=== PATIENT | female | born 1925 | race African-American/Black ===

== ENCOUNTER → 2016-03-16 | Outpatient (CLI) | payer MEDICARE, OTHER ==
[~2016-03-16] MED LIST: ACETAMINOPHEN325 M1 ORAL; ACETAMINOPHEN500 M5 PO; ARICEPT10 MG ORAL; ATIVAN1 MG ORAL; ATORVASTATIN CA20 MG PO; BABY ASPIRIN81 MG PO; BISACODYL5 MG ORAL; CIPRO250 MG ORAL; COLACE100 MG PO; CORTISPORIN EAR10 M1 RIGHT EAR; DEPAKOTE ER250 MG PO; FERROUS SULFAT325 M1 PO; FLUTICASONE PRO16 G1 NASAL; FUROSEMIDE20 M1; GERI-TUSSI100 MG/5 M PO; GLUCOPHAGE1000 MG PO; ILEVRO1.7 ML OPHTHALM; KEFLEX500 MG ORAL; LIPITOR10 MG ORAL; LORAZEPAM1 MG; LUMIGAN2.5 ML BOTH EYES; MELATONIN 3 MG1 EAC1 PO; MIRTAZAPINE15 MG ORAL; MULTIVITAMINS1 EA13 ORAL; NAMENDA10 MG ORAL; NAMENDA10 MG/5 ML PO; NAPROSYN500 MG PO; NORVASC10 MG PO; NORVASC5 MG ORAL; PEPCID20 MG ORAL; PLAVIX75 MG ORAL; PROTONIX20 MG ORAL; PROTONIX40 MG PO; TENORMIN25 MG PO; TRAMADOL HCL50 MG ORAL
--- NOTE | 2016-03-16 16:17 | Diagnostic Imaging Report ---
Indications: Multiple left breast masses incidentally discovered on abdominopelvic CT scan performed 02/07/2016 evaluation of abdominal pain. Patient physically unable to undergo diagnostic mammography. Technique: Real-time grayscale and color Doppler imaging of left breast Findings: Comparison: Abdominopelvic CT scan 02/07/16 2.7 x 2.1 x 2.3 cm mass in 12:00 position. 1.5 x 1.5 x 1.6 cm mass in 10:00 position with adjacent 4 mm nodule of similar appearance. 3.2 x 2.2 x 3.8 cm mass in 2:00 to 3:00 position with adjacent 1 cm nodule of similar appearance. All are palpable, solid, heterogeneously hypoechoic, multilobulated with micro-lobulations, some intrinsic vascularity. 12:00 and 2:00 to 3:00 lesions contain focal calcification. 2:00 to 3:00 lesion demonstrates heterogeneous posterior shadowing. IMPRESSION: Multiple left breast masses as described highly suspicious for multifocal primary breast malignancy. After extensive discussion of findings and management options with patient's daughter, present at time of exam, and she opted to delay ultrasound-guided needle biopsy in order to discuss case further with family and the patient's physicians. BI-RADS category 4C Recommendations: Deferred, pending above
== END | disposition home or self-care (01) ==
LOC: ULS 13:06
DX: N63 Unspecified lump in breast (principal)